=== PATIENT | male | born 1985 | race Caucasian/White ===

== ENCOUNTER → 2017-04-24 | Outpatient (REF) | payer OTHER ==
[2017-04-24 17:46] LABS: HEMATOCRIT 43.6 % (42.0-52.0); HEMOGLOBIN 14.7 g/dl (14.0-18.0); MEAN CORPUSCULAR HEMOGLOBIN 30.2 pg (27.0-33.0); MEAN CORPUSCULAR HGB CONC 33.7 g/dl (32.0-36.5); MEAN CORPUSCULAR VOLUME 89.5 fl (80.0-96.0); PLATELET COUNT, AUTOMATED 660 10^3/uL (150-450); RED BLOOD COUNT 4.87 10^6/uL (4.30-6.10); RED CELL DISTRIBUTION WIDTH 12.2 % (11.5-14.5); WHITE BLOOD COUNT 20.7 10^3/uL (4.0-10.0)
[2017-04-24 18:00] LABS: POSITIVE MORPH POS FLAG
[2017-04-24 18:01] LABS: ADD MANUAL DIFFER YES; POS COUNT POS FLAG
[2017-04-24 18:02] LABS: DIFF SLIDE NUMBER 269
[2017-04-24 18:03] LABS: C REACTIVE PROTEIN QUANTITATIV 1.42 MG/DL (0.00-0.30)
[2017-04-24 18:50] LABS: ERYTHROCYTE SEDIMENTATION RATE 8 mm/hr (0-15)
[2017-04-24 19:18] LABS: ATYPICAL LYMPH 1 % (0-5); BANDS 2 % (< 11); EOSINOPHILS 2 % (0-5); LYMPHOCYTES 10 % (16-52); METAMYELOCYTES 2 % (0-0); MONOCYTES 8 % (0-8); MYELOCYTES 1 % (0-0); NEUTROPHILS 74 % (35-75)
[2017-04-24 19:20] LABS: PLATELET ESTIMATE INCREASED (NORMAL)
== END ==
LOC: M LABDRAW1 14:25
DX: S43.51XA Sprain of right acromioclavicular joint, initial encounter (principal)
CPT/HCPCS: 36415